=== PATIENT | female | born 1960 | race Caucasian/White ===

== ENCOUNTER 2020-05-29 20:35 | Emergency (ER) | payer BC ==
[2020-05-29 20:44] VITALS: BP 148/93; PULSE 90; TEMP 98.4; BMI 23.2
[2020-05-29] MEDS ORDERED: KETOROLAC TROMETHAMINE 60 MG/2 ML VIAL IM ONE (21:30)
[2020-05-29] MEDS ORDERED: KETOROLAC TROMETHAMINE 30 MG/1 ML VIAL ONE (21:34)
== END 2020-05-29 22:42 | disposition home or self-care (01) ==
LOC: JER 20:35
PROC: 3E0233Z Introduction of Anti-inflammatory into Muscle, Percutaneous Approach (ICD-10-PCS; principal; 2020-05-29)
DX: S29.012A Strain of muscle and tendon of back wall of thorax, initial encounter (principal)
CPT/HCPCS: 71046-TC-FY; 99284-25; C9803; U0003

== ENCOUNTER 2020-07-28 18:25 | Inpatient (IN) | payer BC ==
[2020-07-28] MEDS ORDERED: SODIUM CHLORIDE 1,000 ML IV STA ×2 (19:52→23:20)
[2020-07-28] MEDS ORDERED: VANCOMYCIN 1,000 MG in DEXTROSE 5%-WATER - 250 ML IVPB ONE (19:58)
[2020-07-28] MEDS ORDERED: CEFTRIAXONE 1 GM in DEXTROSE 5%-WATER - 100 ML IVPB ONE (19:58)
[2020-07-28] MEDS ORDERED: CEFTRIAXONE 1 GM/50 ML BAG ONE (21:18)
[2020-07-28 22:00] LABS: URINE APPEARANCE CLEAR; URINE BILIRUBIN NEGATIVE (NEGATIVE); URINE COLOR YELLOW; URINE GLUCOSE (UA) 1+ (NEGATIVE); URINE KETONE TRACE (NEGATIVE); URINE LEUK ESTERASE NEGATIVE (NEGATIVE); URINE NITRITE NEGATIVE (NEGATIVE); URINE PROTEIN NEGATIVE (NEGATIVE); URINE UROBILINOGEN 0.2 mg/dL (0.2-1.0)
[2020-07-28 22:02] LABS: BASO % 0.7 % (0-2.0); EOS % 1.2 % (0-4.5); HEMATOCRIT 37.9 % (32.4-45.2); HEMOGLOBIN 12.7 GM/dL (10.7-15.3); LYMPH % 30.4 % (8-40); MCH 29.6 pg (25.7-33.7); MCHC 33.5 g/dl (32.0-36.0); MEAN CELL VOLUME 88.3 fl (80-96); MEAN PLT VOLUME 10.2 fl (7.5-11.1); MONO % 8.2 % (3.8-10.2); NEUT % 59.5 % (42.8-82.8); PLATELET COUNT 243 K/MM3 (134-434); RDW 13.1 % (11.6-15.6); WHITE BLOOD COUNT 8.1 K/mm3 (4.0-10.0)
[2020-07-28 22:08] LABS: INR 0.95 (0.83-1.09); PROTHROMBIN TIME (PATIENT) 11.7 SEC (9.7-13.0)
[2020-07-28 22:28] LABS: COCAINE, UR NEGATIVE ng/ml (CUTOFF=300); URINE BENZODIAZEPINES NEGATIVE ng/ml (CUTOFF=200)
[2020-07-28 22:29] LABS: PHENCYCLIDINE,URINE NEGATIVE ng/ml (CUTOFF=25)
[2020-07-28 22:31] LABS: URINE AMPHETAMINES NEGATIVE ng/ml (CUTOFF=500)
[2020-07-28 22:35] LABS: METHADONE, UR NEGATIVE ng/ml (CUTOFF=300); OPIATES, URI NEGATIVE ng/ml (CUTOFF=300); URINE BARBITURATES NEGATIVE ng/ml (CUTOFF=200)
[2020-07-28 22:57] LABS: CHLORIDE 102 mmol/L (98-107); SODIUM 136 mmol/L (136-145)
[2020-07-28 22:59] LABS: CALCIUM 9.7 mg/dL (8.5-10.1)
[2020-07-28 23:00] LABS: ALBUMIN 3.8 g/dl (3.4-5.0); ANION GAP 7 MMOL/L (8-16); BLOOD UREA NITROGEN 13.1 mg/dL (7-18); CO2 27 mmol/L (21-32); GLUCOSE,RANDOM 207 mg/dL (74-106)
[2020-07-28 23:03] LABS: CREATININE 0.6 mg/dL (0.55-1.3); SGOT/AST 9 U/L (15-37); SGPT/ALT 23 U/L (13-61)
[2020-07-28 23:05] LABS: BILIRUBIN,TOTAL 0.3 mg/dL (0.2-1); TOT PROT 7.5 g/dl (6.4-8.2)
[2020-07-28 23:06] LABS: ALK PHOS 112 U/L (45-117)
[2020-07-28] MEDS ORDERED: VANCOMYCIN 1 GRAM (PRE-DOCKED) 1,000 MG/250 ML BAG IVPB ONE (23:07)
[2020-07-28] MEDS ORDERED: CEFTRIAXONE 1 GM in DEXTROSE 5%-WATER - 50 ML IVPB ONE (23:12)
[2020-07-28] MEDS ORDERED: morphine CARPU-JECT 2 MG/1 ML DISP.SYRIN IVPUSH ONE (23:26)
[2020-07-28] MEDS ORDERED: ACETAMINOPHEN 1000 MG/100 ML VIAL (NON FORMULARY) IVPB ONE (23:26)
[2020-07-28] MEDS ORDERED: ACETAMINOPHEN INJECTION 100 ML IVPB ONE (23:47)
[2020-07-28] MEDS ORDERED: MORPHINE SULFATE 2 MG/ML VIAL ONE (23:47)
[2020-07-29 00:35] LABS: HIV INTERPRETATION NEGATIVE (NEGATIVE)
[2020-07-29] MEDS: SODIUM CHLORIDE 1,000 ML IV SCH (01:25)
[2020-07-29] MEDS ORDERED: VANCOMYCIN 1 GRAM (PRE-DOCKED) 1,000 MG/250 ML BAG IVPB ONE (04:32)
[2020-07-29] MEDS: VANCOMYCIN 1 GRAM (PRE-DOCKED) 1,000 MG/250 ML BAG IVPB SCH ×2 (04:38→10:28)
[2020-07-29] MEDS: INSULIN SLIDING SCALE (NOVOLOG) 1 VIAL SQ SCH ×4 (07:51→21:37)
[2020-07-29] MEDS ORDERED: ACETAMINOPHEN 1000 MG/100 ML VIAL (NON FORMULARY) IVPB ONE ×2 (09:21→21:34)
[2020-07-29] MEDS ORDERED: ACETAMINOPHEN INJECTION 100 ML IVPB ONE (09:34)
[2020-07-29] MEDS ORDERED: CEFTRIAXONE 2 GM in DEXTROSE 5%-WATER 100 ML IVPB SCH (10:00)
[2020-07-29] MEDS ORDERED: LIPITOR 40 MG PO SCH (10:00)
[2020-07-29] MEDS ORDERED: CEFTRIAXONE 2 GM/100 ML BAG IVPB ONE (10:18)
[2020-07-29] MEDS ORDERED: VANCOMYCIN 1 GRAM (PRE-DOCKED) 1,000 MG/250 ML BAG IVPB SCH (12:30)
[2020-07-29 13:38] VITALS: BMI 23.6
[2020-07-29] MEDS: VANCOMYCIN 1 GM in D5W (PRE-DOCKED) 1,000 MG/250 ML IVPB SCH (13:39)
[2020-07-29] MEDS: ALBUTEROL SO4 2.5/IPRATROPIUM 0.5 INH SOL 3 ML VIAL.NEB. NEB SCH ×2 (14:56→20:05)
[2020-07-29] MEDS: ATORVASTATIN CA 40 MG TABLET (FP) PO SCH (21:35)
[2020-07-29] MEDS ORDERED: SIMETHICONE 80 MG TAB.CHEW (FP) PO PRN (21:38)
[2020-07-30] MEDS: SODIUM CHLORIDE 1,000 ML IV SCH (03:23)
[2020-07-30] MEDS: INSULIN SLIDING SCALE (NOVOLOG) 1 VIAL SQ SCH ×2 (06:11→20:17)
[2020-07-30] MEDS ORDERED: BACITRACIN 15 GM TUBE TOPICAL OINTMENT ONE (07:33)
[2020-07-30] MEDS ORDERED: THROMBIN (BOVINE) 5,000 UNIT VIAL TP ONE ×3 (07:33→11:00)
[2020-07-30] MEDS ORDERED: SEVOFLURANE 250 ML BTL ONE (07:47)
[2020-07-30] MEDS ORDERED: SUCCINYLCHOLINE CHLORIDE 200 MG/10 ML SYRINGE ONE (07:48)
[2020-07-30] MEDS ORDERED: PROPOFOL 20 ML ONE ×8 (07:48→12:31)
[2020-07-30] MEDS ORDERED: ROCURONIUM BROMIDE 50 MG/5 ML SYRINGE ONE (07:48)
[2020-07-30] MEDS: ALBUTEROL SO4 2.5/IPRATROPIUM 0.5 INH SOL 3 ML VIAL.NEB. NEB SCH ×3 (08:38→20:30)
[2020-07-30 10:03] LABS: BASO % 0.8 % (0-2.0); EOS % 2.9 % (0-4.5); HEMATOCRIT 33.8 % (32.4-45.2); HEMOGLOBIN 11.2 GM/dL (10.7-15.3); LYMPH % 38.1 % (8-40); MCH 29.5 pg (25.7-33.7); MCHC 33.2 g/dl (32.0-36.0); MEAN CELL VOLUME 88.9 fl (80-96); MEAN PLT VOLUME 10.3 fl (7.5-11.1); MONO % 9.1 % (3.8-10.2); NEUT % 49.1 % (42.8-82.8); PLATELET COUNT 195 K/MM3 (134-434); RDW 12.9 % (11.6-15.6); WHITE BLOOD COUNT 4.7 K/mm3 (4.0-10.0)
[2020-07-30 10:04] LABS: POTASSIUM 4.2 mmol/L (3.5-5.1)
[2020-07-30] MEDS ORDERED: MIDAZOLAM HCL 2 MG/2 ML SINGLE DOSE VIAL ONE ×2 (10:17)
[2020-07-30 10:27] LABS: CALCIUM 8.8 mg/dL (8.5-10.1)
[2020-07-30 10:28] LABS: ALBUMIN 3.1 g/dl (3.4-5.0); BLOOD UREA NITROGEN 5.6 mg/dL (7-18); MAGNESIUM 1.7 mg/dL (1.8-2.4)
[2020-07-30 10:30] LABS: CREATININE 0.4 mg/dL (0.55-1.3); PHOSPHOROUS 3.8 mg/dL (2.5-4.9)
[2020-07-30 10:31] LABS: BILIRUBIN,TOTAL 0.4 mg/dL (0.2-1); TOT PROT 6.1 g/dl (6.4-8.2)
[2020-07-30] MEDS ORDERED: BACITRACIN 15 GM TUBE TOPICAL OINTMENT TP ONE ×2 (11:00)
[2020-07-30] MEDS ORDERED: BACITRACIN 50,000 UNITS VIAL TP ONE ×2 (11:00)
[2020-07-30] MEDS ORDERED: BUPIVACAINE HCL/PF 0.5% (5MG/ML) 10 ML VIAL IJ ONE ×2 (11:00)
[2020-07-30] MEDS ORDERED: MAGNESIUM OXIDE 400 MG TABLET (FP) PO ONE (11:13)
[2020-07-30] MEDS ORDERED: LABETALOL HCL 5 MG/1 ML (100MG/20 ML VIAL) ONE (11:19)
[2020-07-30] MEDS ORDERED: HYDROmorphone HCl 2 MG/ML VIAL ONE ×2 (11:22→16:52)
[2020-07-30] MEDS ORDERED: ONDANSETRON 4 MG/2 ML VIAL ONE (11:51)
[2020-07-30] MEDS ORDERED: LIDOCAINE HCL/PF 2% SDV 5ML VIAL ONE (11:51)
[2020-07-30] MEDS ORDERED: DEXAMETHASONE SOD PHOSPHATE 4 MG/1 ML VIAL ONE (11:51)
[2020-07-30] MEDS ORDERED: ACETAMINOPHEN INJECTION 100 ML IVPB ONE (12:29)
[2020-07-30] MEDS ORDERED: ONDANSETRON 4 MG/2 ML VIAL IVPUSH PRN ×2 (12:32→13:08)
[2020-07-30] MEDS ORDERED: oxyCODONE HCL 5 MG TABLET PO PRN (12:32)
[2020-07-30] MEDS ORDERED: CEFTRIAXONE 2 GM in SODIUM CHLORIDE 100 ML IVPB ONE (12:45)
[2020-07-30] MEDS ORDERED: LACTATED RINGERS SOLUTION 1,000 ML IV SCH (12:45)
[2020-07-30] MEDS ORDERED: BENZOIN/ALOE VERA/STORAX/TOLU 58 ML BOTTLE ONE ×2 (12:55→13:00)
[2020-07-30] MEDS ORDERED: D5-1/2NS+20 MEQ KCL - 20 MEQ/1,000 ML INFUS.BAG IV SCH (13:15)
[2020-07-30] MEDS ORDERED: hydrALAZINE HCL 20 MG/ML VIAL ONE (14:06)
[2020-07-30] MEDS ORDERED: hydrALAZINE HCL 20 MG/ML VIAL IVPUSH ONE ×2 (14:15)
[2020-07-30] MEDS: HYDROmorphone HCl 2 MG/ML VIAL IVPB PRN ×2 (16:30→18:45)
[2020-07-30] MEDS ORDERED: VANCOMYCIN 1 GRAM (PRE-DOCKED) 1,000 MG/250 ML BAG IVPB SCH (17:00)
[2020-07-30] MEDS: PIPERACILLIN/TAZOB 3.375 GM 3.375 GM in DEXTROSE 5%-WATER - 50 ML IVPB SCH (20:33)
[2020-07-30] MEDS: diazePAM 5 MG TABLET PO SCH (23:50)
[2020-07-31] MEDS: ACETAMINOPHEN 325 MG TABLET (FP) PO SCH ×6 (00:02→18:01)
[2020-07-31] MEDS: diazePAM 5 MG TABLET PO SCH ×5 (00:03→21:36)
[2020-07-31] MEDS: DOCUSATE SODIUM 100 MG CAPSULE (FP) PO SCH ×4 (00:03→21:16)
[2020-07-31] MEDS: INSULIN SLIDING SCALE (NOVOLOG) 1 VIAL SQ SCH ×5 (00:04→21:36)
[2020-07-31] MEDS: ATORVASTATIN CA 40 MG TABLET (FP) PO SCH ×2 (00:04→21:15)
[2020-07-31] MEDS: BUDESONIDE/FORMETEROL FUMARATE 80/4.5 mcg INHALER IH SCH ×3 (00:05→21:18)
[2020-07-31] MEDS: VANCOMYCIN 1 GRAM (PRE-DOCKED) 1,000 MG/250 ML BAG IVPB SCH ×3 (01:30→17:54)
[2020-07-31] MEDS: HYDROmorphone HCl 2 MG/ML VIAL IVPB PRN ×2 (01:55→21:17)
[2020-07-31] MEDS ORDERED: PIPERACILLIN/TAZOBACTAM 3.375 GM VIAL IVPB ONE ×3 (02:06→17:59)
[2020-07-31] MEDS ORDERED: DEXTROSE 5%-WATER - 50 ML IVPB ONE ×3 (02:06→17:59)
[2020-07-31] MEDS: PIPERACILLIN/TAZOB 3.375 GM 3.375 GM in DEXTROSE 5%-WATER - 50 ML IVPB SCH ×3 (02:48→18:01)
[2020-07-31] MEDS: oxyCODONE HCL 5 MG TABLET PO PRN ×2 (06:02→11:09)
[2020-07-31] MEDS: ALBUTEROL SO4 2.5/IPRATROPIUM 0.5 INH SOL 3 ML VIAL.NEB. NEB SCH ×3 (08:12→20:02)
[2020-07-31 09:21] LABS: BASO % 0.6 % (0-2.0); EOS % 0.2 % (0-4.5); HEMOGLOBIN 10.1 GM/dL (10.7-15.3); LYMPH % 18.9 % (8-40); MCH 30.1 pg (25.7-33.7); MCHC 33.8 g/dl (32.0-36.0); MEAN CELL VOLUME 89.1 fl (80-96); MEAN PLT VOLUME 9.9 fl (7.5-11.1); MONO % 7.8 % (3.8-10.2); NEUT % 72.5 % (42.8-82.8); PLATELET COUNT 194 K/MM3 (134-434); RBC 3.37 M/mm3 (3.60-5.2); RDW 13.1 % (11.6-15.6); WHITE BLOOD COUNT 7.8 K/mm3 (4.0-10.0)
[2020-07-31] MEDS: HEPARIN NA (PORCINE) 5,000 UNITS/ML 1ML VIAL SQ SCH ×3 (09:55→21:16)
[2020-07-31 10:10] LABS: POTASSIUM 4.1 mmol/L (3.5-5.1)
[2020-07-31 10:16] LABS: CALCIUM 8.2 mg/dL (8.5-10.1); MAGNESIUM 1.6 mg/dL (1.8-2.4)
[2020-07-31 10:19] LABS: CREATININE 0.5 mg/dL (0.55-1.3); PHOSPHOROUS 3.8 mg/dL (2.5-4.9)
[2020-07-31 10:20] LABS: BILIRUBIN,TOTAL 0.4 mg/dL (0.2-1); TOT PROT 5.8 g/dl (6.4-8.2)
[2020-07-31] MEDS ORDERED: MAGNESIUM OXIDE 400 MG TABLET (FP) PO ONE (10:20)
[2020-07-31] MEDS ORDERED: PT OWN MED DRAWER 7, Y5N ONE (11:31)
[2020-07-31] MEDS ORDERED: INSULIN (NOVOLOG) ASPART 100 UNITS/ML 10ML VIAL ONE (21:32)
[2020-08-01] MEDS: ACETAMINOPHEN 325 MG TABLET (FP) PO SCH ×4 (00:22→19:34)
[2020-08-01] MEDS ORDERED: DEXTROSE 5%-WATER - 50 ML IVPB ONE ×4 (01:17→23:33)
[2020-08-01] MEDS ORDERED: PIPERACILLIN/TAZOBACTAM 3.375 GM VIAL IVPB ONE ×4 (01:17→23:32)
[2020-08-01] MEDS: PIPERACILLIN/TAZOB 3.375 GM 3.375 GM in DEXTROSE 5%-WATER - 50 ML IVPB SCH ×3 (01:55→18:03)
[2020-08-01] MEDS: oxyCODONE HCL 5 MG TABLET PO PRN ×3 (01:55→16:56)
[2020-08-01] MEDS: diazePAM 5 MG TABLET PO SCH ×3 (05:41→21:31)
[2020-08-01] MEDS: DOCUSATE SODIUM 100 MG CAPSULE (FP) PO SCH ×3 (05:41→21:27)
[2020-08-01] MEDS: VANCOMYCIN 1 GRAM (PRE-DOCKED) 1,000 MG/250 ML BAG IVPB SCH ×2 (05:41→16:57)
[2020-08-01] MEDS: HEPARIN NA (PORCINE) 5,000 UNITS/ML 1ML VIAL SQ SCH ×3 (05:41→21:27)
[2020-08-01] MEDS: INSULIN SLIDING SCALE (NOVOLOG) 1 VIAL SQ SCH ×4 (06:25→21:27)
[2020-08-01] MEDS: ALBUTEROL SO4 2.5/IPRATROPIUM 0.5 INH SOL 3 ML VIAL.NEB. NEB SCH ×3 (07:45→20:50)
[2020-08-01 07:53] LABS: HEMATOCRIT 29.1 % (32.4-45.2); HEMOGLOBIN 9.9 GM/dL (10.7-15.3); MCH 30.3 pg (25.7-33.7); MEAN CELL VOLUME 89.1 fl (80-96); MEAN PLT VOLUME 10.2 fl (7.5-11.1); PLATELET COUNT 189 K/MM3 (134-434); RBC 3.27 M/mm3 (3.60-5.2); RDW 13.1 % (11.6-15.6); WHITE BLOOD COUNT 7.1 K/mm3 (4.0-10.0)
[2020-08-01 08:29] LABS: POTASSIUM 3.8 mmol/L (3.5-5.1)
[2020-08-01 09:04] LABS: BLOOD UREA NITROGEN 6.8 mg/dL (7-18)
[2020-08-01 09:05] LABS: CALCIUM 8.4 mg/dL (8.5-10.1)
[2020-08-01 09:10] LABS: MAGNESIUM 1.6 mg/dL (1.8-2.4)
[2020-08-01 09:14] LABS: CREATININE 0.5 mg/dL (0.55-1.3); PHOSPHOROUS 3.5 mg/dL (2.5-4.9)
[2020-08-01 09:15] LABS: BILIRUBIN,TOTAL 0.4 mg/dL (0.2-1); TOT PROT 5.9 g/dl (6.4-8.2)
[2020-08-01] MEDS: BUDESONIDE/FORMETEROL FUMARATE 80/4.5 mcg INHALER IH SCH ×2 (10:58→21:28)
[2020-08-01] MEDS: POLYETHYLENE GLYCOL 3350 119 GM BTL PO SCH (10:58)
[2020-08-01] MEDS: ATORVASTATIN CA 40 MG TABLET (FP) PO SCH (21:27)
[2020-08-02] MEDS: ACETAMINOPHEN 325 MG TABLET (FP) PO SCH ×2 (00:14→06:15)
[2020-08-02] MEDS: oxyCODONE HCL 5 MG TABLET PO PRN ×4 (00:57→21:43)
[2020-08-02] MEDS: PIPERACILLIN/TAZOB 3.375 GM 3.375 GM in DEXTROSE 5%-WATER - 50 ML IVPB SCH ×3 (01:03→17:21)
[2020-08-02] MEDS: VANCOMYCIN 1 GRAM (PRE-DOCKED) 1,000 MG/250 ML BAG IVPB SCH ×2 (04:31→18:26)
[2020-08-02] MEDS: HEPARIN NA (PORCINE) 5,000 UNITS/ML 1ML VIAL SQ SCH ×3 (06:14→21:42)
[2020-08-02] MEDS: diazePAM 5 MG TABLET PO SCH ×3 (06:14→21:49)
[2020-08-02] MEDS: DOCUSATE SODIUM 100 MG CAPSULE (FP) PO SCH ×3 (06:15→21:42)
[2020-08-02] MEDS: INSULIN SLIDING SCALE (NOVOLOG) 1 VIAL SQ SCH ×4 (06:15→21:42)
[2020-08-02] MEDS: ALBUTEROL SO4 2.5/IPRATROPIUM 0.5 INH SOL 3 ML VIAL.NEB. NEB SCH ×3 (07:32→21:00)
[2020-08-02] MEDS ORDERED: DEXTROSE 5%-WATER - 50 ML IVPB ONE ×2 (09:33→17:12)
[2020-08-02] MEDS ORDERED: PIPERACILLIN/TAZOBACTAM 3.375 GM VIAL IVPB ONE ×2 (09:33→17:12)
[2020-08-02] MEDS: POLYETHYLENE GLYCOL 3350 119 GM BTL PO SCH ×2 (09:39→21:42)
[2020-08-02] MEDS: BUDESONIDE/FORMETEROL FUMARATE 80/4.5 mcg INHALER IH SCH ×2 (09:40→21:43)
[2020-08-02 10:29] LABS: HEMATOCRIT 30.5 % (32.4-45.2); HEMOGLOBIN 10.2 GM/dL (10.7-15.3); MCH 29.8 pg (25.7-33.7); MCHC 33.4 g/dl (32.0-36.0); MEAN CELL VOLUME 89.2 fl (80-96); MEAN PLT VOLUME 10.1 fl (7.5-11.1); PLATELET COUNT 200 K/MM3 (134-434); RBC 3.42 M/mm3 (3.60-5.2); WHITE BLOOD COUNT 6.6 K/mm3 (4.0-10.0)
[2020-08-02 11:22] LABS: CALCIUM 8.9 mg/dL (8.5-10.1)
[2020-08-02 11:23] LABS: ALBUMIN 2.9 g/dl (3.4-5.0); BLOOD UREA NITROGEN 6.7 mg/dL (7-18)
[2020-08-02 11:25] LABS: CREATININE 0.5 mg/dL (0.55-1.3)
[2020-08-02 11:27] LABS: BILIRUBIN,TOTAL 0.6 mg/dL (0.2-1); TOT PROT 5.8 g/dl (6.4-8.2)
[2020-08-02 11:29] LABS: MAGNESIUM 1.7 mg/dL (1.8-2.4)
[2020-08-02 11:32] LABS: POTASSIUM 3.9 mmol/L (3.5-5.1)
[2020-08-02 15:55] LABS: URINE APPEARANCE CLEAR; URINE BILIRUBIN NEGATIVE (NEGATIVE); URINE COLOR YELLOW; URINE GLUCOSE (UA) 2+ (NEGATIVE); URINE KETONE NEGATIVE (NEGATIVE); URINE LEUK ESTERASE NEGATIVE (NEGATIVE); URINE NITRITE NEGATIVE (NEGATIVE); URINE PROTEIN NEGATIVE (NEGATIVE); URINE UROBILINOGEN 0.2 mg/dL (0.2-1.0)
[2020-08-02] MEDS ORDERED: ACETAMINOPHEN 325 MG TABLET (FP) PO ONE (18:29)
[2020-08-02] MEDS: ATORVASTATIN CA 40 MG TABLET (FP) PO SCH (21:42)
[2020-08-03] MEDS: PIPERACILLIN/TAZOB 3.375 GM 3.375 GM in DEXTROSE 5%-WATER - 50 ML IVPB SCH ×3 (02:23→17:19)
[2020-08-03] MEDS ORDERED: DEXTROSE 5%-WATER - 50 ML IVPB ONE ×3 (03:03→16:56)
[2020-08-03] MEDS ORDERED: PIPERACILLIN/TAZOBACTAM 3.375 GM VIAL IVPB ONE ×3 (03:03→16:56)
[2020-08-03] MEDS: VANCOMYCIN 1 GRAM (PRE-DOCKED) 1,000 MG/250 ML BAG IVPB SCH ×2 (04:58→17:20)
[2020-08-03] MEDS: diazePAM 5 MG TABLET PO SCH ×3 (05:37→21:56)
[2020-08-03] MEDS: oxyCODONE HCL 5 MG TABLET PO PRN ×3 (05:38→21:09)
[2020-08-03] MEDS: HEPARIN NA (PORCINE) 5,000 UNITS/ML 1ML VIAL SQ SCH ×3 (05:39→21:08)
[2020-08-03] MEDS: DOCUSATE SODIUM 100 MG CAPSULE (FP) PO SCH ×3 (05:39→21:08)
[2020-08-03] MEDS: INSULIN SLIDING SCALE (NOVOLOG) 1 VIAL SQ SCH ×4 (06:20→21:08)
[2020-08-03] MEDS: ALBUTEROL SO4 2.5/IPRATROPIUM 0.5 INH SOL 3 ML VIAL.NEB. NEB SCH (07:22)
[2020-08-03] MEDS: POLYETHYLENE GLYCOL 3350 119 GM BTL PO SCH ×2 (10:07→21:08)
[2020-08-03] MEDS: BUDESONIDE/FORMETEROL FUMARATE 80/4.5 mcg INHALER IH SCH ×2 (10:08→21:09)
[2020-08-03 10:11] LABS: HEMATOCRIT 30.7 % (32.4-45.2); HEMOGLOBIN 10.5 GM/dL (10.7-15.3); MCH 29.9 pg (25.7-33.7); MCHC 34.2 g/dl (32.0-36.0); MEAN CELL VOLUME 87.4 fl (80-96); MEAN PLT VOLUME 9.9 fl (7.5-11.1); PLATELET COUNT 245 K/MM3 (134-434); RBC 3.52 M/mm3 (3.60-5.2); WHITE BLOOD COUNT 7.4 K/mm3 (4.0-10.0)
[2020-08-03 10:44] LABS: POTASSIUM 4.1 mmol/L (3.5-5.1)
[2020-08-03 10:50] LABS: CALCIUM 8.9 mg/dL (8.5-10.1)
[2020-08-03 10:52] LABS: CREATININE 0.4 mg/dL (0.55-1.3)
[2020-08-03] MEDS: ATORVASTATIN CA 40 MG TABLET (FP) PO SCH (21:08)
[2020-08-03] MEDS: SENNOSIDES 8.6MG TABLET (FP) PO SCH (21:09)
[2020-08-03] MEDS: HYDROmorphone HCl 2 MG/ML VIAL IVPB PRN (23:41)
[2020-08-04] MEDS ORDERED: PIPERACILLIN/TAZOBACTAM 3.375 GM VIAL IVPB ONE ×3 (01:58→17:13)
[2020-08-04] MEDS ORDERED: DEXTROSE 5%-WATER - 50 ML IVPB ONE ×3 (01:58→17:13)
[2020-08-04] MEDS: PIPERACILLIN/TAZOB 3.375 GM 3.375 GM in DEXTROSE 5%-WATER - 50 ML IVPB SCH ×3 (02:41→17:56)
[2020-08-04] MEDS: oxyCODONE HCL 5 MG TABLET PO PRN ×3 (04:09→21:20)
[2020-08-04] MEDS: VANCOMYCIN 1 GRAM (PRE-DOCKED) 1,000 MG/250 ML BAG IVPB SCH ×2 (05:19→17:56)
[2020-08-04] MEDS: HEPARIN NA (PORCINE) 5,000 UNITS/ML 1ML VIAL SQ SCH ×3 (05:21→21:13)
[2020-08-04] MEDS: DOCUSATE SODIUM 100 MG CAPSULE (FP) PO SCH ×3 (05:22→21:10)
[2020-08-04] MEDS: INSULIN SLIDING SCALE (NOVOLOG) 1 VIAL SQ SCH ×4 (06:44→21:11)
[2020-08-04] MEDS: diazePAM 5 MG TABLET PO SCH ×3 (06:44→22:44)
[2020-08-04 08:30] LABS: HEMATOCRIT 28.8 % (32.4-45.2); HEMOGLOBIN 9.9 GM/dL (10.7-15.3); MCH 30.3 pg (25.7-33.7); MCHC 34.2 g/dl (32.0-36.0); MEAN CELL VOLUME 88.5 fl (80-96); MEAN PLT VOLUME 9.8 fl (7.5-11.1); PLATELET COUNT 249 K/MM3 (134-434); RBC 3.26 M/mm3 (3.60-5.2); WHITE BLOOD COUNT 6.5 K/mm3 (4.0-10.0)
[2020-08-04 09:03] LABS: POTASSIUM 4.1 mmol/L (3.5-5.1)
[2020-08-04 09:09] LABS: CALCIUM 8.7 mg/dL (8.5-10.1)
[2020-08-04 09:10] LABS: BLOOD UREA NITROGEN 5.2 mg/dL (7-18)
[2020-08-04 09:13] LABS: CREATININE 0.5 mg/dL (0.55-1.3)
[2020-08-04] MEDS: BUDESONIDE/FORMETEROL FUMARATE 80/4.5 mcg INHALER IH SCH ×2 (10:42→21:13)
[2020-08-04] MEDS: POLYETHYLENE GLYCOL 3350 119 GM BTL PO SCH ×2 (10:46→21:13)
[2020-08-04] MEDS ORDERED: MAG HYDROX/AL HYDROX/SIMETH -MYLANTA- ORAL SUSPENSION PO PRN (15:44)
[2020-08-04] MEDS ORDERED: PT OWN MED DRAWER 7, Y5N ONE (17:13)
[2020-08-04] MEDS ORDERED: INSULIN (NOVOLOG) ASPART 100 UNITS/ML 10ML VIAL ONE (20:40)
[2020-08-04] MEDS: SENNOSIDES 8.6MG TABLET (FP) PO SCH (21:10)
[2020-08-04] MEDS: ATORVASTATIN CA 40 MG TABLET (FP) PO SCH (21:13)
[2020-08-05] MEDS ORDERED: DEXTROSE 5%-WATER - 50 ML IVPB ONE ×3 (01:08→17:57)
[2020-08-05] MEDS ORDERED: PIPERACILLIN/TAZOBACTAM 3.375 GM VIAL IVPB ONE ×3 (01:08→17:57)
[2020-08-05] MEDS: PIPERACILLIN/TAZOB 3.375 GM 3.375 GM in DEXTROSE 5%-WATER - 50 ML IVPB SCH ×3 (01:14→18:07)
[2020-08-05] MEDS ORDERED: NYSTATIN 100,000 UNIT/GM TOPICAL CREAM 15 GM TUBE TP ONE (01:42)
[2020-08-05] MEDS: oxyCODONE HCL 5 MG TABLET PO PRN (01:49)
[2020-08-05] MEDS: diazePAM 5 MG TABLET PO SCH ×2 (05:49→17:37)
[2020-08-05] MEDS: DOCUSATE SODIUM 100 MG CAPSULE (FP) PO SCH ×2 (05:49→15:42)
[2020-08-05] MEDS: VANCOMYCIN 1 GRAM (PRE-DOCKED) 1,000 MG/250 ML BAG IVPB SCH ×2 (05:51→16:09)
[2020-08-05] MEDS: INSULIN SLIDING SCALE (NOVOLOG) 1 VIAL SQ SCH ×3 (06:08→18:12)
[2020-08-05 07:07] VITALS: TEMP 98.5
[2020-08-05 09:09] LABS: HEMATOCRIT 32.4 % (32.4-45.2); HEMOGLOBIN 10.8 GM/dL (10.7-15.3); MCH 29.6 pg (25.7-33.7); MCHC 33.2 g/dl (32.0-36.0); MEAN CELL VOLUME 89.2 fl (80-96); MEAN PLT VOLUME 10.1 fl (7.5-11.1); PLATELET COUNT 264 K/MM3 (134-434); RBC 3.64 M/mm3 (3.60-5.2); RDW 12.8 % (11.6-15.6); WHITE BLOOD COUNT 6.4 K/mm3 (4.0-10.0)
[2020-08-05 09:17] LABS: INR 1.06 (0.83-1.09)
[2020-08-05 09:38] LABS: POTASSIUM 4.1 mmol/L (3.5-5.1)
[2020-08-05 09:55] LABS: BLOOD UREA NITROGEN 5.3 mg/dL (7-18)
[2020-08-05 09:58] LABS: CALCIUM 9.1 mg/dL (8.5-10.1)
[2020-08-05 09:59] LABS: CREATININE 0.5 mg/dL (0.55-1.3)
[2020-08-05] MEDS: POLYETHYLENE GLYCOL 3350 119 GM BTL PO SCH (10:00)
[2020-08-05] MEDS: BUDESONIDE/FORMETEROL FUMARATE 80/4.5 mcg INHALER IH SCH (10:01)
[2020-08-05] MEDS ORDERED: MAG HYDROX/AL HYDROX/SIMETH 30 ML UNIT-DOSE CUP PO ONE (10:30)
[2020-08-05] MEDS ORDERED: ACETAMINOPHEN 325 MG TABLET (FP) PO ONE (15:08)
[2020-08-05 19:37] VITALS: BP 140/80; PULSE 81
== END 2020-08-05 19:39 | disposition home or self-care (01) | DRG 29 ==
LOC: JER 18:25 → JERBED 20:20 → J5S 07-29 13:14 → J8W 07-30 22:54
PROVIDERS: ADMIT Hospitalist; ATTEND Internal Medicine
PROC: 00NX0ZZ Release Thoracic Spinal Cord, Open Approach (ICD-10-PCS; 2020-07-30)
PROC: 009U0ZX Drainage of Spinal Canal, Open Approach, Diagnostic (ICD-10-PCS; 2020-07-30)
PROC: B01BZZZ Fluoroscopy of Spinal Cord (ICD-10-PCS; 2020-07-30)
PROC: 0JB70ZX Excision of Back Subcutaneous Tissue and Fascia, Open Approach, Diagnostic (ICD-10-PCS; 2020-07-30)
PROC: 0RG6071 Fusion of Thoracic Vertebral Joint with Autologous Tissue Substitute, Posterior Approach, Posterior Column, Open Approach (ICD-10-PCS; principal; 2020-07-30 10:00)
PROC: 02HV33Z Insertion of Infusion Device into Superior Vena Cava, Percutaneous Approach (ICD-10-PCS; 2020-08-05)
PROC: B518ZZA Fluoroscopy of Superior Vena Cava, Guidance (ICD-10-PCS; 2020-08-05)
DX: G06.1 Intraspinal abscess and granuloma (principal); E87.2 Acidosis; M46.24 Osteomyelitis of vertebra, thoracic region; M46.44 Discitis, unspecified, thoracic region; I10 Essential (primary) hypertension; E78.5 Hyperlipidemia, unspecified; J45.909 Unspecified asthma, uncomplicated; E11.69 Type 2 diabetes mellitus with other specified complication; Z86.16 Personal history of COVID-19; G96.198 Other disorders of meninges, not elsewhere classified; E11.40 Type 2 diabetes mellitus with diabetic neuropathy, unspecified
CPT/HCPCS: 36415; 36569; 71046-TC-FY; 72070-TC-FY; 76000-TC-FY; 80048; 80051; 80053; 80307; 81003; 82540; 82550; 82962; 83036; 83605; 83735; 84100; 84484; 85025; 85027; 85610; 85651; 86140; 86850; 86900; 86901; 87040; 87070; 87075; 87086; 87102; 87116; 87205; 87206; 87210; 87389; 93005; 93010; 93306-TC; 94010; 94640; 94760; 97116-GP; 97161-GP; 99285-25; C9803; G0480; J0131; J1644; U0003

== ENCOUNTER 2020-08-19 08:56 | Inpatient (IN) | payer BC ==
[2020-08-19 09:09] VITALS: BMI 23.6
[2020-08-19] MEDS ORDERED: SODIUM CHLORIDE 1,701 ML IV ONE (09:32)
[2020-08-19] MEDS ORDERED: SODIUM CHLORIDE 0.9% 500 ML INFUS.BAG IV ONE (09:34)
[2020-08-19 10:22] LABS: BASO % 0.4 % (0-2.0); EOS % 10.4 % (0-4.5); HEMATOCRIT 35.5 % (32.4-45.2); HEMOGLOBIN 12.2 GM/dL (10.7-15.3); LYMPH % 30.4 % (8-40); MCH 29.1 pg (25.7-33.7); MCHC 34.4 g/dl (32.0-36.0); MEAN CELL VOLUME 84.6 fl (80-96); MEAN PLT VOLUME 9.5 fl (7.5-11.1); MONO % 16.5 % (3.8-10.2); NEUT % 42.3 % (42.8-82.8); PLATELET COUNT 228 K/MM3 (134-434); WHITE BLOOD COUNT 4.1 K/mm3 (4.0-10.0)
[2020-08-19] MEDS ORDERED: TIZANIDINE HCL 4 MG TABLET PO ONE (10:22)
[2020-08-19] MEDS ORDERED: CEFEPIME HCL/D5W 2 GM/50 ML BAG IVPB ONE (10:32)
[2020-08-19] MEDS ORDERED: VANCOMYCIN 1 GM in D5W (PRE-DOCKED) 1,000 MG/250 ML IVPB ONE (10:32)
[2020-08-19] MEDS ORDERED: VANCOMYCIN 1 GRAM (PRE-DOCKED) 1,000 MG/250 ML BAG IVPB ONE ×2 (10:40→18:54)
[2020-08-19] MEDS ORDERED: CEFEPIME 2 GM/100 ML BAG IVPB ONE (10:41)
[2020-08-19 10:43] LABS: CHLORIDE 102 mmol/L (98-107); SODIUM 135 mmol/L (136-145)
[2020-08-19 10:45] LABS: ALBUMIN 3.3 g/dl (3.4-5.0); ANION GAP 9 MMOL/L (8-16); BLOOD UREA NITROGEN 6.7 mg/dL (7-18); CALCIUM 9.6 mg/dL (8.5-10.1); CO2 25 mmol/L (21-32)
[2020-08-19 10:45] LABS: INR 1.13 (0.83-1.09); PROTHROMBIN TIME (PATIENT) 13.8 SEC (9.7-13.0)
[2020-08-19 10:46] LABS: GLUCOSE,RANDOM 170 mg/dL (74-106)
[2020-08-19 10:48] LABS: ACTIVATED PTT 30.4 SECONDS (25.2-36.5)
[2020-08-19 10:48] LABS: SGPT/ALT 27 U/L (13-61)
[2020-08-19 10:49] LABS: CREATININE 0.5 mg/dL (0.55-1.3); SGOT/AST 12 U/L (15-37)
[2020-08-19 10:50] LABS: BILIRUBIN,TOTAL 0.2 mg/dL (0.2-1); TOT PROT 6.8 g/dl (6.4-8.2)
[2020-08-19 10:52] LABS: ALK PHOS 87 U/L (45-117)
[2020-08-19 11:45] LABS: URINE APPEARANCE CLEAR; URINE BILIRUBIN NEGATIVE (NEGATIVE); URINE COLOR YELLOW; URINE GLUCOSE (UA) NEGATIVE (NEGATIVE); URINE KETONE NEGATIVE (NEGATIVE); URINE LEUK ESTERASE NEGATIVE (NEGATIVE); URINE NITRITE NEGATIVE (NEGATIVE); URINE PROTEIN NEGATIVE (NEGATIVE); URINE UROBILINOGEN 0.2 mg/dL (0.2-1.0)
[2020-08-19 12:12] LABS: ANISOCYTOSIS 0; MACROCYTOSIS 0; PLATELET ESTIMATE NORMAL
[2020-08-19] MEDS: INSULIN SLIDING SCALE (NOVOLOG) 1 VIAL SQ SCH ×2 (17:17→23:04)
[2020-08-19] MEDS ORDERED: ACETAMINOPHEN 650 MG/20.3 ML ORAL SOLUTION (CUPS) PO PRN (21:16)
[2020-08-19] MEDS ORDERED: morphine CARPU-JECT 4 MG/1 ML DISP.SYRIN IVPUSH PRN (21:17)
[2020-08-19] MEDS ORDERED: ACETAMINOPHEN 325 MG TABLET (FP) PO PRN (21:22)
[2020-08-19] MEDS ORDERED: oxyCODONE HCL 5 MG TABLET PO ONE (21:30)
[2020-08-19] MEDS ORDERED: ACETAMINOPHEN 325 MG TABLET (FP) PO ONE (21:30)
[2020-08-19] MEDS ORDERED: PT OWN MED DRAWER 7, Y5N ONE (22:48)
[2020-08-19] MEDS: ATORVASTATIN CA 40 MG TABLET (FP) PO SCH (23:02)
[2020-08-19] MEDS: CEFEPIME 2 GM in DEXTROSE 5%-WATER 2 GM/100 ML BAG IVPB SCH (23:04)
[2020-08-20] MEDS: VANCOMYCIN 1 GRAM (PRE-DOCKED) 1,000 MG/250 ML BAG IVPB SCH ×2 (01:27→15:21)
[2020-08-20] MEDS ORDERED: ACETAMINOPHEN 500 MG TABLET (FP) PO ONE (06:30)
[2020-08-20] MEDS: INSULIN SLIDING SCALE (NOVOLOG) 1 VIAL SQ SCH ×4 (07:03→22:43)
[2020-08-20 09:23] LABS: BASO % 1.2 % (0-2.0); EOS % 8.6 % (0-4.5); HEMOGLOBIN 11.9 GM/dL (10.7-15.3); LYMPH % 16.3 % (8-40); MCH 28.6 pg (25.7-33.7); MCHC 33.9 g/dl (32.0-36.0); MEAN CELL VOLUME 84.3 fl (80-96); MEAN PLT VOLUME 9.5 fl (7.5-11.1); MONO % 11.1 % (3.8-10.2); NEUT % 62.8 % (42.8-82.8); PLATELET COUNT 206 K/MM3 (134-434); RBC 4.16 M/mm3 (3.60-5.2); RDW 12.5 % (11.6-15.6); WHITE BLOOD COUNT 5.2 K/mm3 (4.0-10.0)
[2020-08-20 09:49] LABS: POTASSIUM 3.9 mmol/L (3.5-5.1)
[2020-08-20 10:19] LABS: BILIRUBIN,TOTAL 0.2 mg/dL (0.2-1)
[2020-08-20 10:21] LABS: BLOOD UREA NITROGEN 6.8 mg/dL (7-18)
[2020-08-20 10:22] LABS: CREATININE 0.6 mg/dL (0.55-1.3)
[2020-08-20 10:23] LABS: PHOSPHOROUS 3.8 mg/dL (2.5-4.9); TOT PROT 6.7 g/dl (6.4-8.2)
[2020-08-20 10:24] LABS: ALBUMIN 3.2 g/dl (3.4-5.0); MAGNESIUM 1.6 mg/dL (1.8-2.4)
[2020-08-20 10:25] LABS: CALCIUM 8.9 mg/dL (8.5-10.1)
[2020-08-20] MEDS ORDERED: PT OWN MED DRAWER 7, Y5N ONE (11:17)
[2020-08-20] MEDS: CEFEPIME 2 GM in DEXTROSE 5%-WATER 2 GM/100 ML BAG IVPB SCH ×2 (11:19→21:19)
[2020-08-20] MEDS: ENOXAPARIN NA (PORCINE) 40 MG/0.4 ML DISP.SYRIN SQ SCH (11:21)
[2020-08-20 12:40] LABS: ANISOCYTOSIS 0; MACROCYTOSIS 0; PLATELET ESTIMATE NORMAL
[2020-08-20] MEDS: oxyCODONE HCL 5 MG TABLET PO PRN ×2 (13:10→21:19)
[2020-08-20] MEDS: BUDESONIDE/FORMETEROL FUMARATE 160/4.5 mcg INHALER IH SCH ×2 (15:20→21:29)
[2020-08-20] MEDS: TIZANIDINE HCL 4 MG TABLET PO SCH ×2 (15:21→21:29)
[2020-08-20] MEDS: ALBUTEROL SO4 0.083% IH SOL 2.5 MG/3 ML VIAL.NEB. NEB SCH ×2 (15:30→20:10)
[2020-08-20] MEDS: ATORVASTATIN CA 40 MG TABLET (FP) PO SCH (21:19)
[2020-08-20] MEDS: MONTELUKAST NA 10 MG TABLET PO SCH (21:19)
[2020-08-20] MEDS ORDERED: ACETAMINOPHEN 500 MG TABLET (FP) PO PRN (22:15)
[2020-08-21] MEDS: VANCOMYCIN 1 GRAM (PRE-DOCKED) 1,000 MG/250 ML BAG IVPB SCH ×2 (00:45→13:57)
[2020-08-21] MEDS: oxyCODONE HCL 5 MG TABLET PO PRN ×3 (05:03→20:55)
[2020-08-21] MEDS: TIZANIDINE HCL 4 MG TABLET PO SCH ×3 (05:14→21:12)
[2020-08-21] MEDS ORDERED: ACETAMINOPHEN 325 MG TABLET (FP) PO ONE (05:43)
[2020-08-21] MEDS: INSULIN SLIDING SCALE (NOVOLOG) 1 VIAL SQ SCH ×4 (06:37→21:13)
[2020-08-21] MEDS: ALBUTEROL SO4 0.083% IH SOL 2.5 MG/3 ML VIAL.NEB. NEB SCH ×5 (07:30→20:13)
[2020-08-21 09:23] LABS: BASO % 1.1 % (0-2.0); EOS % 8.9 % (0-4.5); HEMATOCRIT 33.7 % (32.4-45.2); HEMOGLOBIN 11.5 GM/dL (10.7-15.3); LYMPH % 17.5 % (8-40); MCH 28.4 pg (25.7-33.7); MCHC 34.1 g/dl (32.0-36.0); MEAN CELL VOLUME 83.1 fl (80-96); MEAN PLT VOLUME 10.3 fl (7.5-11.1); MONO % 10.3 % (3.8-10.2); NEUT % 62.2 % (42.8-82.8); PLATELET COUNT 207 K/MM3 (134-434); RBC 4.06 M/mm3 (3.60-5.2); RDW 12.9 % (11.6-15.6); WHITE BLOOD COUNT 4.8 K/mm3 (4.0-10.0)
[2020-08-21 09:49] LABS: POTASSIUM 3.9 mmol/L (3.5-5.1)
[2020-08-21 10:02] LABS: ALBUMIN 3.2 g/dl (3.4-5.0); CALCIUM 8.5 mg/dL (8.5-10.1)
[2020-08-21 10:03] LABS: BLOOD UREA NITROGEN 5.3 mg/dL (7-18); MAGNESIUM 1.6 mg/dL (1.8-2.4)
[2020-08-21 10:05] LABS: CREATININE 0.5 mg/dL (0.55-1.3); PHOSPHOROUS 3.6 mg/dL (2.5-4.9)
[2020-08-21 10:06] LABS: BILIRUBIN,TOTAL 0.3 mg/dL (0.2-1)
[2020-08-21 10:07] LABS: TOT PROT 6.4 g/dl (6.4-8.2)
[2020-08-21] MEDS ORDERED: PT OWN MED DRAWER 7, Y5N ONE ×3 (10:08→20:47)
[2020-08-21] MEDS: CEFEPIME 2 GM in DEXTROSE 5%-WATER 2 GM/100 ML BAG IVPB SCH ×2 (10:12→21:00)
[2020-08-21] MEDS: ENOXAPARIN NA (PORCINE) 40 MG/0.4 ML DISP.SYRIN SQ SCH (10:14)
[2020-08-21] MEDS: BUDESONIDE/FORMETEROL FUMARATE 160/4.5 mcg INHALER IH SCH ×2 (10:15→21:05)
[2020-08-21] MEDS: ACETAMINOPHEN 325 MG TABLET (FP) PO PRN ×2 (10:30→20:40)
[2020-08-21] MEDS ORDERED: MAGNESIUM 2GM/50ML STERILE WATER IVPB IVPB ONE (11:15)
[2020-08-21] MEDS ORDERED: INSULIN (NOVOLOG) ASPART 100 UNITS/ML 10ML VIAL ONE (11:53)
[2020-08-21] MEDS: ATORVASTATIN CA 40 MG TABLET (FP) PO SCH (21:00)
[2020-08-21] MEDS: MONTELUKAST NA 10 MG TABLET PO SCH (21:00)
[2020-08-22] MEDS: VANCOMYCIN 1 GRAM (PRE-DOCKED) 1,000 MG/250 ML BAG IVPB SCH ×2 (00:39→12:38)
[2020-08-22] MEDS: ACETAMINOPHEN 325 MG TABLET (FP) PO PRN ×3 (05:28→20:43)
[2020-08-22] MEDS: TIZANIDINE HCL 4 MG TABLET PO SCH ×3 (05:29→21:58)
[2020-08-22] MEDS: oxyCODONE HCL 5 MG TABLET PO PRN ×3 (05:29→21:59)
[2020-08-22] MEDS: INSULIN SLIDING SCALE (NOVOLOG) 1 VIAL SQ SCH ×4 (06:02→21:59)
[2020-08-22] MEDS: ALBUTEROL SO4 0.083% IH SOL 2.5 MG/3 ML VIAL.NEB. NEB SCH ×4 (08:10→20:40)
[2020-08-22] MEDS ORDERED: PT OWN MED DRAWER 7, Y5N ONE ×3 (10:51→21:19)
[2020-08-22] MEDS: BUDESONIDE/FORMETEROL FUMARATE 160/4.5 mcg INHALER IH SCH ×2 (10:54→22:03)
[2020-08-22] MEDS: CEFEPIME 2 GM in DEXTROSE 5%-WATER 2 GM/100 ML BAG IVPB SCH ×2 (10:54→21:58)
[2020-08-22] MEDS: ENOXAPARIN NA (PORCINE) 40 MG/0.4 ML DISP.SYRIN SQ SCH (10:54)
[2020-08-22] MEDS ORDERED: INSULIN (NOVOLOG) ASPART 100 UNITS/ML 10ML VIAL ONE ×3 (11:15→21:51)
[2020-08-22 12:31] LABS: HIV INTERPRETATION NEGATIVE (NEGATIVE)
[2020-08-22] MEDS: MONTELUKAST NA 10 MG TABLET PO SCH (21:58)
[2020-08-22] MEDS: ATORVASTATIN CA 40 MG TABLET (FP) PO SCH (21:58)
[2020-08-23] MEDS: VANCOMYCIN 1 GRAM (PRE-DOCKED) 1,000 MG/250 ML BAG IVPB SCH ×2 (02:01→13:46)
[2020-08-23] MEDS: TIZANIDINE HCL 4 MG TABLET PO SCH ×3 (06:29→22:10)
[2020-08-23] MEDS: INSULIN SLIDING SCALE (NOVOLOG) 1 VIAL SQ SCH ×5 (06:29→22:11)
[2020-08-23] MEDS: ACETAMINOPHEN 325 MG TABLET (FP) PO PRN (06:29)
[2020-08-23] MEDS: ALBUTEROL SO4 0.083% IH SOL 2.5 MG/3 ML VIAL.NEB. NEB SCH ×4 (07:45→20:30)
[2020-08-23 08:40] LABS: BASO % 1.3 % (0-2.0); EOS % 18.7 % (0-4.5); HEMATOCRIT 31.6 % (32.4-45.2); HEMOGLOBIN 10.8 GM/dL (10.7-15.3); LYMPH % 23.6 % (8-40); MCH 28.5 pg (25.7-33.7); MCHC 34.1 g/dl (32.0-36.0); MEAN CELL VOLUME 83.6 fl (80-96); MEAN PLT VOLUME 10.9 fl (7.5-11.1); MONO % 14.9 % (3.8-10.2); NEUT % 41.5 % (42.8-82.8); PLATELET COUNT 179 K/MM3 (134-434); RBC 3.78 M/mm3 (3.60-5.2); WHITE BLOOD COUNT 3.4 K/mm3 (4.0-10.0)
[2020-08-23 08:54] LABS: POTASSIUM 4.2 mmol/L (3.5-5.1)
[2020-08-23 09:08] LABS: ALBUMIN 3.2 g/dl (3.4-5.0); BLOOD UREA NITROGEN 4.6 mg/dL (7-18); CALCIUM 8.9 mg/dL (8.5-10.1)
[2020-08-23 09:11] LABS: CREATININE 0.6 mg/dL (0.55-1.3); PHOSPHOROUS 3.3 mg/dL (2.5-4.9)
[2020-08-23 09:13] LABS: BILIRUBIN,TOTAL 0.8 mg/dL (0.2-1); TOT PROT 6.5 g/dl (6.4-8.2)
[2020-08-23] MEDS: ENOXAPARIN NA (PORCINE) 40 MG/0.4 ML DISP.SYRIN SQ SCH (10:17)
[2020-08-23] MEDS: BUDESONIDE/FORMETEROL FUMARATE 160/4.5 mcg INHALER IH SCH ×2 (10:18→22:16)
[2020-08-23] MEDS ORDERED: PT OWN MED DRAWER 7, Y5N ONE ×3 (10:29→21:17)
[2020-08-23] MEDS: CEFEPIME 2 GM in DEXTROSE 5%-WATER 2 GM/100 ML BAG IVPB SCH (10:35)
[2020-08-23 11:13] LABS: ANISOCYTOSIS 0; HELMET CELLS 0; HOWELL-JOLLY BODIES 0; MACROCYTOSIS 0; OVALOCYTE 0; PLATELET ESTIMATE NORMAL; ROULEAU 0; SICKELED CELLS 0; TARGET CELLS 0; TEAR DROP CELLS 0; TOXIC GRANULATION 0
[2020-08-23] MEDS: oxyCODONE HCL 5 MG TABLET PO PRN ×2 (13:54→22:11)
[2020-08-23] MEDS: MONTELUKAST NA 10 MG TABLET PO SCH (22:10)
[2020-08-23] MEDS: ATORVASTATIN CA 40 MG TABLET (FP) PO SCH (22:10)
[2020-08-24] MEDS: oxyCODONE HCL 5 MG TABLET PO PRN ×3 (06:55→21:41)
[2020-08-24] MEDS: TIZANIDINE HCL 4 MG TABLET PO SCH ×3 (06:55→21:40)
[2020-08-24] MEDS: INSULIN SLIDING SCALE (NOVOLOG) 1 VIAL SQ SCH ×4 (06:56→21:40)
[2020-08-24] MEDS: ALBUTEROL SO4 0.083% IH SOL 2.5 MG/3 ML VIAL.NEB. NEB SCH ×4 (08:00→20:40)
[2020-08-24] MEDS: ENOXAPARIN NA (PORCINE) 40 MG/0.4 ML DISP.SYRIN SQ SCH (10:37)
[2020-08-24] MEDS: BUDESONIDE/FORMETEROL FUMARATE 160/4.5 mcg INHALER IH SCH ×2 (10:39→21:44)
[2020-08-24 10:55] LABS: BASO % 0.9 % (0-2.0); EOS % 12.6 % (0-4.5); HEMATOCRIT 34.6 % (32.4-45.2); HEMOGLOBIN 11.5 GM/dL (10.7-15.3); LYMPH % 26.3 % (8-40); MCH 27.9 pg (25.7-33.7); MCHC 33.1 g/dl (32.0-36.0); MEAN CELL VOLUME 84.4 fl (80-96); MEAN PLT VOLUME 10.8 fl (7.5-11.1); MONO % 10.9 % (3.8-10.2); NEUT % 49.3 % (42.8-82.8); PLATELET COUNT 234 K/MM3 (134-434); RDW 13.2 % (11.6-15.6); WHITE BLOOD COUNT 5.7 K/mm3 (4.0-10.0)
[2020-08-24 11:21] LABS: POTASSIUM 4.3 mmol/L (3.5-5.1)
[2020-08-24 11:23] LABS: ALBUMIN 3.4 g/dl (3.4-5.0); BLOOD UREA NITROGEN 6.8 mg/dL (7-18); CALCIUM 9.4 mg/dL (8.5-10.1); MAGNESIUM 1.8 mg/dL (1.8-2.4)
[2020-08-24 11:26] LABS: CREATININE 0.7 mg/dL (0.55-1.3)
[2020-08-24 11:28] LABS: BILIRUBIN,TOTAL 0.2 mg/dL (0.2-1); TOT PROT 7.4 g/dl (6.4-8.2)
[2020-08-24] MEDS ORDERED: PT OWN MED DRAWER 7, Y5N ONE (21:10)
[2020-08-24] MEDS: ATORVASTATIN CA 40 MG TABLET (FP) PO SCH (21:40)
[2020-08-24] MEDS: MONTELUKAST NA 10 MG TABLET PO SCH (21:41)
[2020-08-25] MEDS: ACETAMINOPHEN 325 MG TABLET (FP) PO PRN (06:52)
[2020-08-25] MEDS: TIZANIDINE HCL 4 MG TABLET PO SCH ×3 (06:52→22:09)
[2020-08-25] MEDS: INSULIN SLIDING SCALE (NOVOLOG) 1 VIAL SQ SCH ×4 (06:52→22:20)
[2020-08-25] MEDS: ALBUTEROL SO4 0.083% IH SOL 2.5 MG/3 ML VIAL.NEB. NEB SCH ×3 (08:40→16:27)
[2020-08-25] MEDS ORDERED: INSULIN (NOVOLOG) ASPART 100 UNITS/ML 10ML VIAL ONE ×2 (09:14→22:05)
[2020-08-25] MEDS: ENOXAPARIN NA (PORCINE) 40 MG/0.4 ML DISP.SYRIN SQ SCH (09:31)
[2020-08-25] MEDS: BUDESONIDE/FORMETEROL FUMARATE 160/4.5 mcg INHALER IH SCH ×2 (09:31→22:16)
[2020-08-25 10:11] LABS: BASO % 0.8 % (0-2.0); EOS % 10.7 % (0-4.5); HEMATOCRIT 32.4 % (32.4-45.2); LYMPH % 40.8 % (8-40); MCH 28.6 pg (25.7-33.7); MEAN CELL VOLUME 84.1 fl (80-96); MEAN PLT VOLUME 10.4 fl (7.5-11.1); MONO % 8.1 % (3.8-10.2); NEUT % 39.6 % (42.8-82.8); PLATELET COUNT 252 K/MM3 (134-434); RBC 3.86 M/mm3 (3.60-5.2); RDW 13.5 % (11.6-15.6); WHITE BLOOD COUNT 4.3 K/mm3 (4.0-10.0)
[2020-08-25 10:35] LABS: POTASSIUM 4.3 mmol/L (3.5-5.1)
[2020-08-25 10:42] LABS: ALBUMIN 3.3 g/dl (3.4-5.0); MAGNESIUM 1.7 mg/dL (1.8-2.4)
[2020-08-25 10:44] LABS: BLOOD UREA NITROGEN 7.3 mg/dL (7-18)
[2020-08-25 10:45] LABS: CREATININE 0.6 mg/dL (0.55-1.3); PHOSPHOROUS 4.4 mg/dL (2.5-4.9)
[2020-08-25] MEDS ORDERED: MAGNESIUM SULF 50% (8.12 MEQ/2 ML-1 GM VIAL) IVPB ONE (10:46)
[2020-08-25 10:47] LABS: BILIRUBIN,TOTAL 0.3 mg/dL (0.2-1); TOT PROT 6.9 g/dl (6.4-8.2)
[2020-08-25 10:49] LABS: CALCIUM 9.5 mg/dL (8.5-10.1)
[2020-08-25] MEDS ORDERED: SODIUM CHLORIDE 1,000 ML IV SCH ×2 (11:00→20:15)
[2020-08-25 14:07] LABS: CMV IgM < 30.0 AU/mL (0.0-29.9); EPSTEIN BARR ANTIBODY IgM <36.0 U/mL (0.0-35.9)
[2020-08-25] MEDS ORDERED: MIDAZOLAM HCL 2 MG/2 ML SINGLE DOSE VIAL ONE (17:30)
[2020-08-25] MEDS ORDERED: PROPOFOL 20 ML ONE (17:30)
[2020-08-25] MEDS ORDERED: SEVOFLURANE 250 ML BTL ONE (17:34)
[2020-08-25] MEDS ORDERED: LIDOCAINE 1%/EPI 1:100000 (50 ML MULTI DOSE VIAL) ONE (17:38)
[2020-08-25] MEDS ORDERED: LIDOCAINE 1%/EPI 1:100000 (20 ML MULTI DOSE VIAL) IJ ONE ×2 (18:17)
[2020-08-25] MEDS ORDERED: ROCURONIUM BROMIDE 100 MG/10 ML VIAL ONE (18:48)
[2020-08-25] MEDS ORDERED: SUCCINYLCHOLINE CHLORIDE 200 MG/10 ML SYRINGE ONE (18:48)
[2020-08-25] MEDS ORDERED: LIDOCAINE HCL/PF 2% SDV 5ML VIAL ONE (19:00)
[2020-08-25] MEDS ORDERED: DEXAMETHASONE SOD PHOSPHATE 4 MG/1 ML VIAL ONE (19:00)
[2020-08-25] MEDS ORDERED: ONDANSETRON 4 MG/2 ML VIAL ONE (19:00)
[2020-08-25] MEDS ORDERED: NEOSTIGMINE METHYLSULFATE 0.5 MG/ML - 10 ML MDV ONE (19:36)
[2020-08-25] MEDS ORDERED: ACETAMINOPHEN 325 MG TABLET (FP) PO PRN (20:15)
[2020-08-25] MEDS ORDERED: ONDANSETRON 4 MG/2 ML VIAL IVPUSH PRN (21:20)
[2020-08-25] MEDS ORDERED: LACTATED RINGERS SOLUTION 1,000 ML IV SCH (21:30)
[2020-08-25] MEDS ORDERED: ATORVASTATIN CA 40 MG TABLET (FP) PO SCH (22:00)
[2020-08-25] MEDS: MONTELUKAST NA 10 MG TABLET PO SCH (22:09)
[2020-08-25] MEDS: oxyCODONE HCL 5 MG TABLET PO PRN (22:12)
[2020-08-26] MEDS: INSULIN SLIDING SCALE (NOVOLOG) 1 VIAL SQ SCH ×4 (06:50→21:43)
[2020-08-26] MEDS: TIZANIDINE HCL 4 MG TABLET PO SCH ×3 (06:51→21:28)
[2020-08-26] MEDS: oxyCODONE HCL 5 MG TABLET PO PRN ×3 (06:57→21:35)
[2020-08-26] MEDS: ALBUTEROL SO4 0.083% IH SOL 2.5 MG/3 ML VIAL.NEB. NEB SCH ×4 (07:40→21:00)
[2020-08-26 09:31] LABS: BASO % 0.4 % (0-2.0); EOS % 0.1 % (0-4.5); HEMATOCRIT 30.8 % (32.4-45.2); HEMOGLOBIN 10.5 GM/dL (10.7-15.3); LYMPH % 25.2 % (8-40); MCH 28.4 pg (25.7-33.7); MCHC 34.1 g/dl (32.0-36.0); MEAN CELL VOLUME 83.4 fl (80-96); MONO % 6.3 % (3.8-10.2); PLATELET COUNT 248 K/MM3 (134-434); RDW 13.1 % (11.6-15.6); WHITE BLOOD COUNT 5.4 K/mm3 (4.0-10.0)
[2020-08-26 10:07] LABS: POTASSIUM 4.7 mmol/L (3.5-5.1)
[2020-08-26 10:22] LABS: ALBUMIN 3.2 g/dl (3.4-5.0); BLOOD UREA NITROGEN 10.4 mg/dL (7-18); MAGNESIUM 2.1 mg/dL (1.8-2.4)
[2020-08-26 10:25] LABS: CREATININE 0.6 mg/dL (0.55-1.3); PHOSPHOROUS 2.7 mg/dL (2.5-4.9)
[2020-08-26 10:27] LABS: BILIRUBIN,TOTAL 0.3 mg/dL (0.2-1); TOT PROT 6.6 g/dl (6.4-8.2)
[2020-08-26] MEDS: ENOXAPARIN NA (PORCINE) 40 MG/0.4 ML DISP.SYRIN SQ SCH (10:28)
[2020-08-26 10:29] LABS: CALCIUM 8.8 mg/dL (8.5-10.1)
[2020-08-26] MEDS: BUDESONIDE/FORMETEROL FUMARATE 160/4.5 mcg INHALER IH SCH ×2 (10:29→21:27)
[2020-08-26 13:07] LABS: BRUCELLA IG-G Negative (Negative); BRUCELLA IG-M Negative (Negative)
[2020-08-26] MEDS ORDERED: PT OWN MED DRAWER 7, Y5N ONE ×2 (14:54→21:19)
[2020-08-26] MEDS: CEFEPIME 2 GM in DEXTROSE 5%-WATER - 100 ML IVPB SCH ×2 (15:40→21:26)
[2020-08-26] MEDS: SODIUM CHLORIDE IVPB SCH (17:01)
[2020-08-26] MEDS: DAPTOMYCIN IVPB SCH (17:01)
[2020-08-26] MEDS: MONTELUKAST NA 10 MG TABLET PO SCH (21:27)
[2020-08-27] MEDS ORDERED: BISMUTH SUBSALICYLATE 524 MG/30 ML UD PO ONE (01:06)
[2020-08-27] MEDS: TIZANIDINE HCL 4 MG TABLET PO SCH ×2 (06:08→14:47)
[2020-08-27] MEDS: oxyCODONE HCL 5 MG TABLET PO PRN ×2 (06:08→14:47)
[2020-08-27] MEDS: INSULIN SLIDING SCALE (NOVOLOG) 1 VIAL SQ SCH ×3 (06:10→17:01)
[2020-08-27] MEDS: ALBUTEROL SO4 0.083% IH SOL 2.5 MG/3 ML VIAL.NEB. NEB SCH ×3 (08:35→15:22)
[2020-08-27] MEDS ORDERED: PT OWN MED DRAWER 7, Y5N ONE ×2 (08:59→14:42)
[2020-08-27 09:10] LABS: POTASSIUM 4.1 mmol/L (3.5-5.1)
[2020-08-27 09:12] LABS: CALCIUM 8.8 mg/dL (8.5-10.1)
[2020-08-27 09:13] LABS: ALBUMIN 3.1 g/dl (3.4-5.0); BLOOD UREA NITROGEN 6.6 mg/dL (7-18)
[2020-08-27 09:16] LABS: CREATININE 0.5 mg/dL (0.55-1.3); MAGNESIUM 1.7 mg/dL (1.8-2.4); PHOSPHOROUS 3.6 mg/dL (2.5-4.9)
[2020-08-27 09:18] LABS: BILIRUBIN,TOTAL 0.3 mg/dL (0.2-1); TOT PROT 6.2 g/dl (6.4-8.2)
[2020-08-27] MEDS: ENOXAPARIN NA (PORCINE) 40 MG/0.4 ML DISP.SYRIN SQ SCH (09:22)
[2020-08-27] MEDS: BUDESONIDE/FORMETEROL FUMARATE 160/4.5 mcg INHALER IH SCH (09:23)
[2020-08-27 09:27] LABS: BASO % 0.6 % (0-2.0); EOS % 9.7 % (0-4.5); HEMATOCRIT 29.2 % (32.4-45.2); HEMOGLOBIN 9.8 GM/dL (10.7-15.3); LYMPH % 14.5 % (8-40); MCH 28.6 pg (25.7-33.7); MCHC 33.6 g/dl (32.0-36.0); MEAN PLT VOLUME 10.6 fl (7.5-11.1); MONO % 5.7 % (3.8-10.2); NEUT % 69.5 % (42.8-82.8); PLATELET COUNT 249 K/MM3 (134-434); RBC 3.43 M/mm3 (3.60-5.2); RDW 13.6 % (11.6-15.6); WHITE BLOOD COUNT 5.6 K/mm3 (4.0-10.0)
[2020-08-27] MEDS: CEFEPIME 2 GM in DEXTROSE 5%-WATER - 100 ML IVPB SCH (10:12)
[2020-08-27] MEDS: SODIUM CHLORIDE IVPB SCH (11:23)
[2020-08-27] MEDS: DAPTOMYCIN IVPB SCH (11:23)
[2020-08-27] MEDS ORDERED: MAGNESIUM OXIDE 400 MG TABLET (FP) PO ONE (11:39)
[2020-08-27 11:48] VITALS: PULSE 76
[2020-08-27 14:17] VITALS: BP 164/89; TEMP 98.8
== END 2020-08-27 18:34 | disposition home health service (06) | DRG 803 ==
LOC: JER 08:56 → JERBED 14:25 → J6S 20:26
PROVIDERS: ADMIT Internal Medicine; ATTEND Internal Medicine
PROC: 07B20ZX Excision of Left Neck Lymphatic, Open Approach, Diagnostic (ICD-10-PCS; principal; 2020-08-25 18:00)
DX: R59.0 Localized enlarged lymph nodes (principal); M46.24 Osteomyelitis of vertebra, thoracic region; E11.9 Type 2 diabetes mellitus without complications; J45.909 Unspecified asthma, uncomplicated; I10 Essential (primary) hypertension; E78.5 Hyperlipidemia, unspecified; Z79.84 Long term (current) use of oral hypoglycemic drugs; R50.9 Fever, unspecified; D72.10 Eosinophilia, unspecified; M46.44 Discitis, unspecified, thoracic region
CPT/HCPCS: 36415; 70491-TC; 71045-TC-FY; 71270-TC; 72125-TC; 74178-TC; 76536-TC; 80053; 81003; 82164; 82728; 82962; 83605; 83615; 83735; 84100; 84484; 85025; 85610; 85651; 85730; 86140; 86308; 86480; 86611; 86622; 86644; 86645; 86664; 86665; 86682; 86777; 86778; 87040; 87070; 87075; 87086; 87102; 87116; 87205; 87206; 87210; 87252; 87389; 88305-TC; 93005; 93010; 93306-TC; 94640; 94760; 99285-25; C9803; J0878; Q9967; U0003

== ENCOUNTER 2023-09-02 14:06 | Emergency (ER) | payer BC ==
[2023-09-02 14:21] VITALS: RESP 18; BMI 23.6
[2023-09-02 16:43] LABS: BASO % 0.6 % (0-2.0); EOS % 0.6 % (0-4.5); HEMATOCRIT 40.8 % (32.4-45.2); HEMOGLOBIN 14.2 GM/dL (10.7-15.3); MCH 31.4 pg (25.7-33.7); MCHC 34.9 g/dl (32.0-36.0); MEAN PLT VOLUME 9.4 fl (7.5-11.1); MONO % 7.8 % (3.8-10.2); PLATELET COUNT 192 10^3/uL (134-434); RBC 4.53 M/mm3 (3.60-5.2); RDW 13.1 % (11.6-15.6); WHITE BLOOD COUNT 8.5 K/mm3 (4.0-10.0)
[2023-09-02 17:07] VITALS: BP 178/83; PULSE 72; TEMP 98.6
[2023-09-02] MEDS ORDERED: ACETAMINOPHEN INJECTION 100 ML IVPB ONE (17:11)
[2023-09-02 17:13] LABS: ALBUMIN 3.9 g/dl (3.4-5.0); BLOOD UREA NITROGEN 9.8 mg/dL (7-18)
[2023-09-02 17:15] LABS: CREATININE 0.6 mg/dL (0.55-1.3)
[2023-09-02 17:17] LABS: BILIRUBIN,TOTAL 0.4 mg/dL (0.2-1)
[2023-09-02] MEDS: ACETAMINOPHEN 1000 MG/100 ML BAG IVPB ONE (17:19)
== END 2023-09-02 17:45 | disposition home or self-care (01) ==
LOC: JER 14:06
PROC: 3E033NZ Introduction of Analgesics, Hypnotics, Sedatives into Peripheral Vein, Percutaneous Approach (ICD-10-PCS; principal; 2023-09-02)
DX: R51.9 Headache, unspecified (principal); R22.0 Localized swelling, mass and lump, head; M54.2 Cervicalgia; S00.81XA Abrasion of other part of head, initial encounter; W01.0XXA Fall on same level from slipping, tripping and stumbling without subsequent striking against object, initial encounter; Y92.009 Unspecified place in unspecified non-institutional (private) residence as the place of occurrence of the external cause
CPT/HCPCS: 36415; 70450-TC; 72125-TC; 80053; 85025; 93005; 93010; 99285-25; J0131